=== PATIENT | female | born 1940 | race Caucasian/White ===

== ENCOUNTER 2017-12-02 09:08 | Inpatient (IN) | payer MEDICARE, OTHER ==
--- NOTE | 2017-12-02 10:01 | CT ---
CT HEAD NONCONTRAST: Clinical history: Right sided weakness, stroke, right facial droop. FINDINGS: Mild parenchymal volume loss with mild chronic ischemic disease are present. There is no intracranial hemorrhage or midline shift. IMPRESSION: 1. No acute intracranial abnormalities. 2. Mild chronic ischemic disease. Telephone call made to Emergency Department physician, Casimiro Blanc, at 0913 hours 7-18. POS: [facility]
[2017-12-02 10:35] LABS: #Basophils 0.1 thou/uL (0.0-0.2); #Eosinphils 0.2 thou/uL (0.0-0.7); #Lymphocytes 1.2 thou/uL (1.20-3.40); #Monocytes 0.4 thou/uL (0.11-0.59); #Neutrophils 4.5 thou/uL (1.40-6.50); %Basophils 1.2 % (0.0-1.0); %Eosinophils 2.6 % (0.0-10.0); %Lymphocytes 18.5 % (21.0-51.0); %Monocytes 6.6 % (0.0-10.0); Hemoglobin 14.4 g/dL (12.0-16.0); Mean Corpuscular HGB CONC 34.1 g/dL (32.0-36.0); Mean Corpuscular Volume 93.9 fL (78.0-98.0); Mean Platelet Volume 7.6 fL (7.4-10.4); Platelet Count 241 thou/uL (130-400); RBC Distribution Width 11.8 % (11.5-14.5); Red Blood Cell (RBC) Count 4.49 mill/uL (4.20-5.40); White Blood Cell (WBC) Count 6.3 thou/uL (4.8-10.8)
[2017-12-02 10:45] LABS: Prothrombin Time 13.4 SEC (12.0-14.7)
[2017-12-02 11:01] LABS: ALT (SGPT) 20 U/L (8-55); AST (SGOT) 16 U/L (5-34); Albumin 3.9 g/dL (3.4-4.8); Alkaline Phosphatase 58 U/L (40-150); Anion Gap 15 mmol/L (10-20); BUN (Urea Nitrogen) 13 mg/dL (9.8-20.1); Bilirubin, Total 1.1 mg/dL (0.2-1.2); CK (CPK) 69 U/L (29-168); CKMB 1.4 ng/mL (0-6.6); Calc. Creatinine Clearance 0 mL/min (70-130); Calcium 9.3 mg/dL (7.8-10.44); Carbon Dioxide 25 mmol/L (23-31); Chloride 103 mmol/L (98-107); Estimated GFR-MDRD 82; Globulin 2.9 g/dL (2.4-3.5); Glucose 113 mg/dL (83-110); Potassium 3.9 mmol/L (3.5-5.1); Protein, Total 6.8 g/dL (6.0-8.3); Sodium 139 mmol/L (136-145); Troponin I Less than 0.010 ng/mL (< 0.028)
[2017-12-02] MEDS ORDERED: ISOVUE-370 76%-LOCM 1 ML ONE (11:16)
[2017-12-02] MEDS ORDERED: cefTRIAXone\\ROCEPHIN 2 GM VIAL ONE (11:29)
[2017-12-02] MEDS ORDERED: Clopidogrel Bisulfate 75 MG TAB ONE (11:29)
--- NOTE | 2017-12-02 11:41 | CT ---
CONTRAST ENHANCED CTA CAROTID ARTERIES AND INTRACRANIAL CTA: HISTORY: Patient with stroke with facial drooping, right side. TECHNIQUE: A contrast enhanced CTA of the brain is performed. In addition, a contrast enhanced CTA of the carot id arteries is performed, and 2D and 3D reconstructed images were performed on an independent 3D work station. Numerous bullae are seen in the lung parenchyma. No significant evidence of mediastinal masses seen in the superior mediastinum. Some minimal thyroid heterogeneity is seen in the thyroid lobes bilaterally. No significant evidence of soft tissue neck mass lesions seen. The right and left common carotid arteries are patent. No evidence of filling defects seen in the co mmon or internal carotid arteries bilaterally. Vertebral and basilar arteries bilaterally are unremarkable. INTRACRANIAL CTA: The right and left internal carotid arteries are unremarkable. The right and left middle cerebral arteries are unremarkable. There is normal flow seen in the proximal portions of th e intracerebral artery. In the A2 portion of the anterior cerebral artery, there may be an area of a rteriovenous communication, possibly representing a small, dural-based arteriovenous malformation; h owever, this is likely of significant shunting, as the draining veins are not significantly enlarged; however, elective neurosurgical consultation may be of use. IMPRESSION: 1. No evidence of acute stroke seen. 2. No evidence of clot seen in the internal carotid artery or major intracranial vessels. 3. Possible but not definite anterior cerebral artery area of shunting and possible arteriovenous ma lformation in the A2 segment of the anterior cerebral artery. Findings discussed with Dr. Blanc at 10:32 a.m. on 12/02/2017. CODE CR POS: [facility]
[2017-12-02] MEDS ORDERED: Diabetic Tussin 200 MG/10 ML UDCUP PO PRN (13:36)
[2017-12-02] MEDS ORDERED: Senokot 8.6 MG TAB PO PRN (13:36)
[2017-12-02] MEDS ORDERED: Ondansetron HCl/PF 4 MG/2 ML Vial IVP PRN (13:36)
[2017-12-02] MEDS ORDERED: Sodium Chloride 0.65% Nasal 44 ML BOT EA NARE PRN (13:36)
[2017-12-02] MEDS ORDERED: Acetaminophen 325 MG TAB PO PRN (13:36)
[2017-12-02] MEDS ORDERED: Zolpidem Tartrate 5 MG TAB PO PRN (13:36)
[2017-12-02] MEDS ORDERED: Milk Of Magnesia 30 ML UDCUP PO PRN (13:36)
[2017-12-02] MEDS ORDERED: Loperamide HCl 2 MG CAP PO PRN (13:36)
[2017-12-02] MEDS ORDERED: Artificial Tears 18 DROP/0.9 ML EA EYE PRN (13:36)
[2017-12-02] MEDS ORDERED: Loratadine 10 MG TAB PO PRN (13:36)
[2017-12-02] MEDS ORDERED: Ondansetron ODT 4 MG TAB PO PRN (13:36)
[2017-12-02] MEDS ORDERED: Eucerin (Mineral Oil/Petrolatum,White) 30 gm Jar TOP PRN (13:36)
[2017-12-02] MEDS ORDERED: Chloraseptic Spray 180 ml Bottle PO PRN (13:36)
[2017-12-02] MEDS ORDERED: Mag-Al 1200 mg/1200 mg/30 ML UDCUP PO PRN (13:36)
[2017-12-02] MEDS ORDERED: Labetalol HCl 100 MG/20 ML VIAL SLOW IVP PRN (13:36)
[2017-12-02] MEDS ORDERED: hydrALAZINE 20 MG/ML VIAL SLOW IVP PRN (13:36)
--- NOTE | 2017-12-02 14:09 | HP ---
PRIMARY CARE PHYSICIAN: Dr. Shon Alfredo in [place]. REASON FOR ADMISSION: Stroke-like symptoms. HISTORY OF PRESENT ILLNESS: A 77-year-old female with no significant medical history who came to emergency room with acute onset of motor deficit right upper and lower extremity weakness as well as facial droop. This was started around 7:00 this morning. The patient experienced right-sided facial droop, right-sided upper and lower extremity weakness and slurred speech. The patient reports that she was not able to sleep during nighttime because she was having leg discomfort. She woke up this morning around 6:00 a.m. and she called 7:00 her daughter to come over. Patient's daughter noticed that she was weak on the right side and she was having facial asymmetry. Patient's daughter came to her home around 7:30. Subsequently, she noticed that she improved to normal. When she arrived to ER, at that time, she did not have any facial droop and she did not have any weakness. In the emergency room, patient was having recurrent similar symptoms with weakness, facial droop and right upper and lower extremity weakness. Initially, she was not able to use her right side completely, but after that she started using. So she was having recurrent on and off any weakness on the right side. In the emergency room, CT brain was done which did not show any acute process. CT [place] angiography was performed which did not show any acute stroke. There was no clot in the internal carotid artery or major intracranial vessel. There was suspicious finding of AV malformation in the A2 segment of the anterior cerebral artery. This patient's symptoms started around 7 and she came to the ER around 9:16 a.m. ER physician did stroke alert. ER physician spoke with Dr. Fay and patient was not given TPA. I saw this patient in the emergency room after consultation from the ER around 1:00. Patient did have some facial droop on the right side and she was having some weakness on the right upper and lower extremity, but the patient's family member reported that it is much better than when she came into the ER. She did not have any chest pain, palpitation, dizziness and syncope. She did not have any fall. She denies any trauma. She denies any headache. She denies any difficulty swallowing. She denies any nasal twang. She denies any similar problem in the past. Family member reports that she had several years of atrial fibrillation, but she was only taking aspirin. She was not on any statin therapy. She was not on any blood pressure medication. The patient was able to do all routine activities by herself. PAST MEDICAL HISTORY: Atrial fibrillation paroxysmal several years ago, but subsequently patient did not have any further episode, hypertension, dyslipidemia, not on any specific treatment and undiagnosed. PAST SURGICAL HISTORY: Prolapsed uterus repair. PAST PSYCHIATRIC HISTORY: Reviewed and negative. SOCIAL HISTORY: Patient lives alone by herself at home. No history of tobacco , alcohol or illicit drug abuse. FAMILY HISTORY: No strong family history of premature coronary artery disease, stroke or cancer. ALLERGIES: SULFA DRUGS. CURRENT HOME MEDICATION: Aspirin 81 mg p.o. daily. EMERGENCY ROOM COURSE: Patient is given Plavix 300 mg, aspirin 324 mg. REVIEW OF SYSTEMS: The following complete review of systems was negative, unless otherwise mentioned in the HPI or below: Constitutional: Weight loss or gain, ability to conduct usual activities. Skin: Rash, itching. Eyes: Double vision, pain. ENT/Mouth: Nose bleeding, neck stiffness, pain, tenderness. Cardiovascular: Palpitations, dyspnea on exertion, orthopnea. Respiratory: Shortness of breath, wheezing, cough, hemoptysis, fever or night sweats. Gastrointestinal: Poor appetite, abdominal pain, heartburn, nausea, vomiting, constipation, or diarrhea. Genitourinary: Urgency, frequency, dysuria, nocturia. Musculoskeletal: Pain, swelling. Neurologic/Psychiatric: Anxiety, depression. Allergy/Immunologic: Skin rash, bleeding tendency. Please see my HPI for pertinent positive and negative. All other review of system reviewed and negative except as mentioned in the HPI. PHYSICAL EXAMINATION: VITAL SIGNS: On arrival, blood pressure 178/95, pulse 91, respiratory rate 16, temperature 98.4, saturation 94% on room air, weight 85.0 kilograms. GENERAL: Patient is currently alert, awake, hypertensive, tachycardic. No obvious acute distress. HEAD: Normocephalic, atraumatic. Eyes: Pupils round, reactive to light. Extraocular muscle intact. ENT: Oropharynx within normal limits. Moist mucous membranes, no oral lesion, no pharyngeal erythema, no exudate. NECK: Supple, no JVD, no thyromegaly, no carotid bruit. LUNGS: Clear to auscultation without any rhonchi or rales. CARDIAC: S1, S2 regular, tachycardia, no murmur, no gallop, no rub. ABDOMEN: Soft, bowel sounds present, nontender, nondistended. No organomegaly , no mass, no suprapubic tenderness. BACK: Unremarkable, no CVA tenderness. EXTREMITIES: Upper extremity passive movements of all joints are normal. Lower extremity passive movements of all joints are normal. No edema. Good peripheral pulsation. SKIN: No skin rash. HEMATOLOGICAL SYSTEM: No lymphadenopathy. PSYCHIATRIC: Normal affect. NEUROLOGIC: The patient is alert, oriented x3. Cranial nerve II through XII reviewed and consistent with right-sided facial droop. No nystagmus. Pupils round and reactive to light. Motor 4/5 in the right upper and lower extremity. Sensation intact. Reflexes bilaterally symmetrical. Left-sided motor and sensation within normal limits. Reflexes bilaterally symmetrical. No cerebellar sign. Plantar bilateral flexor. IMAGING DATA AND SIGNIFICANT LABORATORY DATA: EKG showing normal sinus rhythm, low voltage QRS complex. CT brain based on my review, no acute intracranial process, mild chronic ischemic changes. CT [place] showing no evidence of clot in the internal carotid artery or intracranial vessel, suspected finding of AV malformation in the A2 segment of anterior cerebellar artery. CBC: WBC 6.3, hemoglobin 14.4, platelet 241. INR 1.0. BMP: Sodium 139, potassium 3.9, chloride 103, carbon dioxide 25, anion gap 15, BUN 13, creatinine 0.69, glucose 113, calcium 9.3. LFT: AST 16, ALT 20, alkaline phosphatase 58, albumin 3.9, CK 69, CK-MB 1.4, troponin less than 0.010. ASSESSMENT AND PLAN/IMPRESSION: 1. Stroke-like symptoms. This patient has right-sided facial droop, right upper and lower extremity weakness. Patient has recurrent symptoms. Patient has previous history of atrial fibrillation. At this point, patient is currently in sinus rhythm. She is hypertensive. Patient's cholesterol status is not known. She has several risk factor stroke. Unfortunately, patient's family member was not interested in any TPA and now patient is already out of her TPA. Dr. Fay was notified and this patient was not given any TPA in the emergency room. We will keep this patient in the hospital for secondary prevention. We will continue with aspirin 325 mg p.o. daily, Lipitor 40 mg p.o. at bedtime and Plavix 75 mg p.o. daily. We will start blood pressure medicine, lisinopril 5 mg p.o. daily. We will consult Neurology. We will consult entire stroke team including PT, OT, Speech and rehabilitation screen. We will monitor neurologically. We will obtain echocardiography. We will also check homocysteine PT/INR and syphilis. 2. Dyslipidemia. Cholesterol status is not known. We are starting Lipitor 40 mg p.o. at bedtime and check lipid profile tomorrow. 3. Hypertension, without any specific treatment. We will start lisinopril 5 mg p.o. daily. We will monitor patient's blood pressure while in hospital. 4. Deep venous thrombosis prophylaxis, Lovenox 40 mg subcu daily. 5. Gastrointestinal prophylaxis, Pepcid 20 mg p.o. b.i.d. 6. Code status: The patient is FULL CODE. Patient's daughter is surrogate decision maker. Disposition plan based on clinical course. We are expecting patient's stay in hospital more than 2 midnights. Plan of care discussed with the patient in detail. ANA MARIAD
[2017-12-02] MEDS ORDERED: Lorazepam 2 MG/ML VIAL SLOW IVP SCH (14:30)
[2017-12-02 16:02] LABS: Bilirubin Negative (Negative); Blood, Urine Trace (Negative); Clarity CLEAR (Clear); Glucose, Urine (Dipstick) Negative (Negative); Leukocyte Trace (Negative); Nitrite Negative (Negative); Protein, Urine (Dipstick) Negative (Neg-Trace); Specific Gravity, Urine 1.034 (1.002-1.036); Urobilinogen 0.2 mg/dL (0.2-1.0); pH, Urine 7.5 (5.0-9.0)
[2017-12-02 16:03] VITALS: BMI 33.2
[2017-12-02 16:04] LABS: Bacteria/HPF None Seen HPF (None Seen); Hyaline Casts/LPF 0-3 HYALINE CAST LPF (0-3 Hyaline); Squamous Epithelial 0-3 HPF (0-3); WBC/HPF None Seen HPF (0-3)
[2017-12-02] MEDS ORDERED: Sterile Water 10 ML VIAL FS SCH (16:30)
[2017-12-02] MEDS ORDERED: Ziprasidone 20 MG VIAL IM SCH (16:30)
[2017-12-02] MEDS: Famotidine 20 MG TAB PO SCH (20:52)
[2017-12-02] MEDS: Atorvastatin Calcium 40 MG TAB PO SCH (20:53)
[2017-12-02] MEDS: HYDROcodone/Acetaminophen 7.5/325 mg Tablet PO PRN (20:53)
--- NOTE | 2017-12-03 00:26 | CON ---
DATE OF CONSULTATION: 12/02/2017 CONSULTING PHYSICIAN: Family medicine service. IMPRESSION: 1. Probable lacunar stroke with right-sided weakness and dysarthria. 2. Aspirin failure. 3. History of restless leg syndrome. PLAN: 1. Add Plavix. 2. Echocardiogram. 3. MRI of the brain. 4. Determine need for rehabilitation. HISTORY OF PRESENT ILLNESS: Ms. Carpenter is a 77-year-old white female with no significant past his tory according to her daughter. She developed right-sided weakness and presented to the emergency ro om this morning. Her CT scan of the brain was negative for bleed. CTA failed to reveal any evidence of narrowing or thrombus in any of the major vessels. Her symptoms improved spontaneously while in the ER. Unfortunately, she started having recurrent right-sided weakness and was started on some Whit vix. There was some discussion of the possibility of trying tPA, but they elected not to. She has n ever had any stroke-like symptoms in the past. There is no history of any stroke risk factors such a s hypertension, diabetes, or heart disease. She was taking aspirin daily. PAST MEDICAL HISTORY: Restless legs. FAMILY HISTORY: Unremarkable. SOCIAL HISTORY: No tobacco use. ALLERGIES: SULFA. MEDICATIONS: Just aspirin. PHYSICAL EXAMINATION: GENERAL: At this time, she is overweight lady, lying in bed asleep. She had been received some Ativ an for sedation. HEENT: Pupils are equal in size. Her face appears to be symmetric. NEUROLOGIC: She is deeply lethargic and does not arouse to movement and manipulation. The tone in t he extremities seems to be grossly symmetric and reflexes were grossly symmetric. EKG shows sinus rhythm. Imaging was reviewed. LABORATORY STUDIES: Unremarkable as well. SUMMARY: A 77-year-old woman with waxing and waning right-sided weakness consistent with a probable lacunar infarction. Agree with your management, hopefully she will have a quick return to normal fun ction and follow up on the test results.
[2017-12-03] MEDS: HYDROcodone/Acetaminophen 7.5/325 mg Tablet PO PRN ×3 (02:44→22:45)
[2017-12-03 05:21] LABS: #Basophils 0.1 thou/uL (0.0-0.2); #Eosinphils 0.1 thou/uL (0.0-0.7); #Neutrophils 5.4 thou/uL (1.40-6.50); %Basophils 0.6 % (0.0-1.0); %Eosinophils 0.8 % (0.0-10.0); %Lymphocytes 23.3 % (21.0-51.0); %Monocytes 11.9 % (0.0-10.0); %Neutrophils 63.4 % (42.0-75.0); Hemoglobin 13.5 g/dL (12.0-16.0); Mean Corpuscular HGB CONC 33.2 g/dL (32.0-36.0); Mean Corpuscular Hemoglobin 30.8 pg (27.0-31.0); Mean Corpuscular Volume 92.9 fL (78.0-98.0); Mean Platelet Volume 7.3 fL (7.4-10.4); Platelet Count 273 thou/uL (130-400); RBC Distribution Width 11.9 % (11.5-14.5); Red Blood Cell (RBC) Count 4.39 mill/uL (4.20-5.40); White Blood Cell (WBC) Count 8.5 thou/uL (4.8-10.8)
[2017-12-03 05:38] LABS: ALT (SGPT) 21 U/L (8-55); AST (SGOT) 23 U/L (5-34); Albumin 3.9 g/dL (3.4-4.8); Alkaline Phosphatase 57 U/L (40-150); Anion Gap 12 mmol/L (10-20); BUN (Urea Nitrogen) 13 mg/dL (9.8-20.1); Bilirubin, Total 1.9 mg/dL (0.2-1.2); Calc. Creatinine Clearance 83 mL/min (70-130); Calcium 9.2 mg/dL (7.8-10.44); Carbon Dioxide 28 mmol/L (23-31); Cardiac Risk 3.7 (Less than 4.5); Chloride 105 mmol/L (98-107); Cholesterol 188 mg/dl (< 200 Desired); Estimated GFR-MDRD 76; Globulin 2.8 g/dL (2.4-3.5); Glucose 106 mg/dL (83-110); HDL Cholesterol 51 mg/dL (>60 Neg Risk); LDL Cholesterol, Calculated 117 mg/dL; Potassium 3.5 mmol/L (3.5-5.1); Protein, Total 6.7 g/dL (6.0-8.3); Sodium 141 mmol/L (136-145); Triglycerides 99 mg/dL (Less than 150)
[2017-12-03 05:48] LABS: Syphilis Antibody Nonreactive (Nonreactive); Syphilis Antibody Index 0.21 S/CO (<1.00 Non-Reactive)
[2017-12-03 06:54] LABS: INR-International Normal Ratio 1.1; Prothrombin Time 14.3 SEC (12.0-14.7)
[2017-12-03] MEDS: Aspirin 325 mg Enteric Coated Tablet PO SCH (09:11)
[2017-12-03] MEDS: Lisinopril 5 MG TAB PO SCH (09:11)
[2017-12-03] MEDS: Clopidogrel Bisulfate 75 MG TAB PO SCH (09:11)
[2017-12-03] MEDS: Enoxaparin Sodium 40 MG/0.4 ML SYRINGE SC SCH (09:11)
[2017-12-03] MEDS: Famotidine 20 MG TAB PO SCH ×2 (09:11→21:35)
--- NOTE | 2017-12-03 10:57 | PDOC.PN ---
- Subjective Encounter Start Date: 12/03/17 Encounter Start Time: 07:20 -: old records requested/rev Patient seen and examined. she was bothered by restless leg yesterday and night. No overnight events now pt is finally resting after norco - Objective Resuscitation Status: Resuscitation Status FULL:Full Resuscitation MAR Reviewed: Yes Vital Signs & Weight: Vital Signs (12 hours) Temp Pulse Resp BP BP Pulse Ox 12/03/17 09:11 79 142/67 H 12/03/17 08:00 97.8 F 79 18 142/67 H 95 12/03/17 04:36 98 F 80 22 H 120/56 L 90 L 12/03/17 00:20 98 F 97 20 139/76 93 L Weight Weight 187 lb 6.287 oz Result Diagrams: 12/03/17 05:07 12/03/17 05:07 EKG Reviewed by me: Yes (nsr) Phys Exam - Physical Examination Constitutional: NAD HEENT: PERRLA, moist MMs, sclera anicteric Neck: no JVD, supple Respiratory: no wheezing, no rales, no rhonchi Cardiovascular: RRR, no significant murmur, no rub Gastrointestinal: soft, non-tender, no distention, positive bowel sounds Musculoskeletal: no edema, pulses present right side weakness Psychiatric: normal affect Skin: no rash, normal turgor Dx/Plan (1) CVA (cerebral vascular accident) Code(s): I63.9 - CEREBRAL INFARCTION, UNSPECIFIED Status: Acute (2) Dyslipidemia Code(s): E78.5 - HYPERLIPIDEMIA, UNSPECIFIED Status: Chronic (3) H/O atrial fibrillation without current medication Code(s): Z86.79 - PERSONAL HISTORY OF OTHER DISEASES OF THE CIRCULATORY SYSTEM Status: Chronic (4) Hypertension Code(s): I10 - ESSENTIAL (PRIMARY) HYPERTENSION Status: Chronic (5) Obesity (BMI 30.0-34.9) Code(s): E66.9 - OBESITY, UNSPECIFIED Status: Chronic (6) Restless leg syndrome Status: Chronic - Plan cont current plan of care, plan discussed w/ family, PT/OT, social studies department chair * echo * MRI * continue aspirin and plavix, lipitor and lisinopril * medication reviewed as below * symptomatic treatment * rehab evaluation * stroke team. Review of Systems - Review of Systems Eyes: negative: Pain, Vision Change, Conjunctivae Inflammation, Eyelid Inflammation, Redness, Other ENT: negative: Ear Pain, Ear Discharge, Nose Pain, Nose Discharge, Nose Congestion, Mouth Pain, Mouth Swelling, Throat Pain, Throat Swelling, Other Respiratory: negative: Cough, Dry, Shortness of Breath, Hemoptysis, SOB with Excertion, Pleuritic Pain, Sputum, Wheezing Cardiovascular: negative: chest pain, palpitations, orthopnea, paroxysmal nocturnal dyspnea, edema, light headedness, other Gastrointestinal: negative: Nausea, Vomiting, Abdominal Pain, Diarrhea, Constipation, Melena, Hematochezia, Other Genitourinary: negative: Dysuria, Frequency, Incontinence, Hematuria, Retention , Other Musculoskeletal: negative: Neck Pain, Shoulder Pain, Arm Pain, Back Pain, Hand Pain, Leg Pain, Foot Pain, Other Neurological: Weakness. negative: Numbness, Incoordination, Change in Speech, Confusion, Seizures, Other - Medications/Allergies Allergies/Adverse Reactions: Allergies Allergy/AdvReac Type Severity Reaction Status Date / Time Sulfa (Sulfonamide Allergy Verified 12/02/17 17:05 Antibiotics) Medications: Current Medications Acetaminophen (Tylenol) 650 mg PO Q4H PRN PRN Reason: Headache/Fever or Pain Hydrocodone Bitart/Acetaminophen ([place] 7.5/325) 1 tab PO Q4H PRN PRN Reason: Moderate Pain (4-6) Last Admin: 12/03/17 02:44 Dose: 1 tab Al Hydroxide/Mg Hydroxide (Maalox) 30 ml PO Q6H PRN PRN Reason: Heartburn or Indigestion Artificial Tears (Tears Naturale) 0 drop EA EYE PRN PRN PRN Reason: Dry Eyes Aspirin (Ecotrin) 325 mg PO DAILY [facility] Last Admin: 12/03/17 09:11 Dose: 325 mg Atorvastatin Calcium (Lipitor) 40 mg PO HS [facility] Last Admin: 12/02/17 20:53 Dose: 40 mg Clopidogrel Bisulfate (Plavix) 75 mg PO DAILY [facility] Last Admin: 12/03/17 09:11 Dose: 75 mg Enoxaparin Sodium (Lovenox) 40 mg SC 0900 [facility] Last Admin: 12/03/17 09:11 Dose: 40 mg Famotidine (Pepcid) 20 mg PO BID [facility] Last Admin: 12/03/17 09:11 Dose: 20 mg Guaifenesin (Robitussin Sf) 200 mg PO Q4H PRN PRN Reason: Cough Hydralazine HCl (Apresoline) 10 mg SLOW IVP Q4H PRN PRN Reason: Systolic BP > 180 Labetalol HCl (Normodyne) 20 mg SLOW IVP Q4H PRN PRN Reason: Systolic BP > 180 Last Admin: 12/02/17 18:52 Dose: 20 mg Lisinopril (Zestril) 5 mg PO DAILY [facility] Last Admin: 12/03/17 09:11 Dose: 5 mg Loperamide HCl (Imodium) 2 mg PO PRN PRN PRN Reason: Diarrhea/Loose Stools Loratadine (Claritin) 10 mg PO DAILYPRN PRN PRN Reason: Sinus Symptoms Magnesium Hydroxide (Milk Of Magnesium) 30 ml PO DAILYPRN PRN PRN Reason: Constipation Mineral Oil/White Petrolatum (Eucerin Cream) 0 gm TOP BIDPRN PRN PRN Reason: Dry Skin Ondansetron HCl (Zofran Odt) 4 mg PO Q6H PRN PRN Reason: Nausea/Vomiting Ondansetron HCl (Zofran) 4 mg IVP Q6H PRN PRN Reason: Nausea/Vomiting Phenol (Chloraseptic [place] 180 Ml Bot) 0 ml PO PRN PRN PRN Reason: Sore Throat Senna (Senokot) 2 tab PO HSPRN PRN PRN Reason: Constipation Sodium Chloride ([place] Nasal [place] 0.65%) 0 ml EA NARE QIDPRN PRN PRN Reason: Nasal Congestion Sodium Chloride (Flush - Normal Saline) 10 ml IVF Q12HR [facility] Last Admin: 12/03/17 09:12 Dose: 10 ml Sodium Chloride (Flush - Normal Saline) 10 ml IVF PRN PRN PRN Reason: Saline Flush Zolpidem Tartrate (Ambien) 5 mg PO HSPRN PRN PRN Reason: Insomnia
[2017-12-03] MEDS: Ketorolac Tromethamine 30 MG/ML VIAL IVP SCH (12:59)
[2017-12-03] MEDS ORDERED: Methocarbamol 500 MG TAB PO SCH (13:00)
--- NOTE | 2017-12-03 14:42 | MRI ---
MRI OF THE BRAIN WITHOUT CONTRAST: Date: 12/03/17 INDICATION: History of acute stroke and unable to move the right arm, left-sided facial droop. TECHNIQUE: Multiplanar, multisequence MR images were obtained of the brain without IV contrast. COMPARISON: CT brain dated 12/02/17. FINDINGS: There is an area of restricted diffusion involving the white matter of the left external capsule exte nding into the left church radiata with associated T2 signal abnormality likely related to acute to s ubacute white matter infarct. No definite hemorrhage associated with this lesion. Septum pellucidum a nd third ventricle are midline. There is mild generalized cerebral atrophy. The [place] lenses have be en replaced. There are appropriate flow-voids within the major intracranial cerebral arteries. Skull and extracranial soft tissues appear within normal limits. There is moderate chronic small vessel whi te matter ischemic change. IMPRESSION: 1. Acute to subacute left subcortical white matter infarct involving the left external capsule exten ding into the left church radiata. There is no evidence to suggest hemorrhagic conversion. No midline shift is evident. No hydrocephalus is noted. No intracranial hemorrhage is demonstrated. 2. Moderate chronic small vessel white matter ischemic change. POS: [facility]
[2017-12-03] MEDS: Atorvastatin Calcium 40 MG TAB PO SCH (21:35)
[2017-12-03] MEDS ORDERED: Fluticasone Propionate Nasal Spray 16 gm Bottle NASAL PRN (22:43)
[2017-12-04] MEDS: Enoxaparin Sodium 40 MG/0.4 ML SYRINGE SC SCH (09:54)
[2017-12-04] MEDS: Clopidogrel Bisulfate 75 MG TAB PO SCH (09:54)
[2017-12-04] MEDS: Aspirin 325 mg Enteric Coated Tablet PO SCH (09:54)
[2017-12-04] MEDS: Lisinopril 5 MG TAB PO SCH (09:55)
[2017-12-04] MEDS: Famotidine 20 MG TAB PO SCH ×2 (09:55→22:04)
[2017-12-04] MEDS ORDERED: Lisinopril 5 MG TAB PO SCH (10:15)
--- NOTE | 2017-12-04 11:38 | PDOC.PN ---
- Subjective Encounter Start Date: 12/04/17 Encounter Start Time: 07:30 Patient seen and examined. No new complaints. No overnight events - Objective Resuscitation Status: Resuscitation Status FULL:Full Resuscitation MAR Reviewed: Yes Vital Signs & Weight: Vital Signs (12 hours) Temp Pulse Pulse Pulse Resp BP BP 12/04/17 09:55 82 12/04/17 08:41 82 79 163/73 H 152/72 H 12/04/17 07:48 98.6 F 82 18 12/04/17 03:30 98.1 F 80 20 BP Pulse Ox 12/04/17 09:55 12/04/17 08:41 12/04/17 07:48 175/77 H 95 12/04/17 03:30 139/68 94 L Weight Admit Weight 187 lb 6.287 oz Weight 187 lb 6.287 oz Result Diagrams: 12/03/17 05:07 12/03/17 05:07 Radiology Reviewed by me: Yes (mri) EKG Reviewed by me: Yes (nsr) Phys Exam - Physical Examination Constitutional: NAD HEENT: PERRLA, moist MMs, sclera anicteric Neck: no JVD, supple Respiratory: no wheezing, no rales, no rhonchi Cardiovascular: RRR, no significant murmur, no rub Gastrointestinal: soft, non-tender, no distention, positive bowel sounds Musculoskeletal: no edema, pulses present right side weakness Psychiatric: normal affect, A&O x 3 Skin: no rash, normal turgor Dx/Plan (1) CVA (cerebral vascular accident) Code(s): I63.9 - CEREBRAL INFARCTION, UNSPECIFIED Status: Acute Qualifiers: Precerebral and cerebral artery: middle cerebral artery Laterality of affected vessel: left (2) Dyslipidemia Code(s): E78.5 - HYPERLIPIDEMIA, UNSPECIFIED Status: Chronic (3) H/O atrial fibrillation without current medication Code(s): Z86.79 - PERSONAL HISTORY OF OTHER DISEASES OF THE CIRCULATORY SYSTEM Status: Chronic (4) Hypertension Code(s): I10 - ESSENTIAL (PRIMARY) HYPERTENSION Status: Chronic (5) Obesity (BMI 30.0-34.9) Code(s): E66.9 - OBESITY, UNSPECIFIED Status: Chronic (6) Restless leg syndrome Status: Chronic - Plan cont current plan of care, plan discussed w/ family, PT/OT, director social service * will need rehab near [facility] * will monitor * continue stroke team evaluation * medication reviewed as below * symptomatic treatment * discussed with family and updated result. Review of Systems - Review of Systems Constitutional: negative: fever, chills, sweats, weakness, malaise, other Eyes: negative: Pain, Vision Change, Conjunctivae Inflammation, Eyelid Inflammation, Redness, Other ENT: negative: Ear Pain, Ear Discharge, Nose Pain, Nose Discharge, Nose Congestion, Mouth Pain, Mouth Swelling, Throat Pain, Throat Swelling, Other Respiratory: negative: Cough, Dry, Shortness of Breath, Hemoptysis, SOB with Excertion, Pleuritic Pain, Sputum, Wheezing Cardiovascular: negative: chest pain, palpitations, orthopnea, paroxysmal nocturnal dyspnea, edema, light headedness, other Gastrointestinal: negative: Nausea, Vomiting, Abdominal Pain, Diarrhea, Constipation, Melena, Hematochezia, Other Genitourinary: negative: Dysuria, Frequency, Incontinence, Hematuria, Retention , Other Musculoskeletal: negative: Neck Pain, Shoulder Pain, Arm Pain, Back Pain, Hand Pain, Leg Pain, Foot Pain, Other Skin: negative: Rash, Lesions, Gavin, Bruising, Other Neurological: Weakness. negative: Numbness, Incoordination, Change in Speech, Confusion, Seizures, Other - Medications/Allergies Allergies/Adverse Reactions: Allergies Allergy/AdvReac Type Severity Reaction Status Date / Time Sulfa (Sulfonamide Allergy Verified 12/02/17 17:05 Antibiotics) Medications: Current Medications Acetaminophen (Tylenol) 650 mg PO Q4H PRN PRN Reason: Headache/Fever or Pain Hydrocodone Bitart/Acetaminophen ([place] 7.5/325) 1 tab PO Q4H PRN PRN Reason: Moderate Pain (4-6) Last Admin: 12/03/17 22:45 Dose: 1 tab Al Hydroxide/Mg Hydroxide (Maalox) 30 ml PO Q6H PRN PRN Reason: Heartburn or Indigestion Artificial Tears (Tears Naturale) 0 drop EA EYE PRN PRN PRN Reason: Dry Eyes Aspirin (Ecotrin) 325 mg PO DAILY [facility] Last Admin: 12/04/17 09:54 Dose: 325 mg Atorvastatin Calcium (Lipitor) 40 mg PO HS [facility] Last Admin: 12/03/17 21:35 Dose: 40 mg Clopidogrel Bisulfate (Plavix) 75 mg PO DAILY [facility] Last Admin: 12/04/17 09:54 Dose: 75 mg Enoxaparin Sodium (Lovenox) 40 mg SC 0900 [facility] Last Admin: 12/04/17 09:54 Dose: 40 mg Famotidine (Pepcid) 20 mg PO BID [facility] Last Admin: 12/04/17 09:55 Dose: 20 mg Fluticasone Propionate (Flonase Nasal [place]) 0 gm NASAL BIDPRN PRN PRN Reason: CONGESTION/ALLERGIES Guaifenesin (Robitussin Sf) 200 mg PO Q4H PRN PRN Reason: Cough Hydralazine HCl (Apresoline) 10 mg SLOW IVP Q4H PRN PRN Reason: Systolic BP > 180 Ketorolac Tromethamine (Toradol) 15 mg IVP NOW [facility] Stop: 12/08/17 13:01 Last Admin: 12/03/17 12:59 Dose: 15 mg Labetalol HCl (Normodyne) 20 mg SLOW IVP Q4H PRN PRN Reason: Systolic BP > 180 Last Admin: 12/02/17 18:52 Dose: 20 mg Lisinopril (Zestril) 10 mg PO DAILY [facility] Loperamide HCl (Imodium) 2 mg PO PRN PRN PRN Reason: Diarrhea/Loose Stools Loratadine (Claritin) 10 mg PO DAILYPRN PRN PRN Reason: Sinus Symptoms Magnesium Hydroxide (Milk Of Magnesium) 30 ml PO DAILYPRN PRN PRN Reason: Constipation Mineral Oil/White Petrolatum (Eucerin Cream) 0 gm TOP BIDPRN PRN PRN Reason: Dry Skin Ondansetron HCl (Zofran Odt) 4 mg PO Q6H PRN PRN Reason: Nausea/Vomiting Ondansetron HCl (Zofran) 4 mg IVP Q6H PRN PRN Reason: Nausea/Vomiting Phenol (Chloraseptic [place] 180 Ml Bot) 0 ml PO PRN PRN PRN Reason: Sore Throat Senna (Senokot) 2 tab PO HSPRN PRN PRN Reason: Constipation Sodium Chloride ([place] Nasal [place] 0.65%) 0 ml EA NARE QIDPRN PRN PRN Reason: Nasal Congestion Sodium Chloride (Flush - Normal Saline) 10 ml IVF Q12HR [facility] Last Admin: 12/04/17 09:56 Dose: 10 ml Sodium Chloride (Flush - Normal Saline) 10 ml IVF PRN PRN PRN Reason: Saline Flush Last Admin: 12/03/17 21:36 Dose: 10 ml Zolpidem Tartrate (Ambien) 5 mg PO HSPRN PRN PRN Reason: Insomnia
[2017-12-04] MEDS: HYDROcodone/Acetaminophen 7.5/325 mg Tablet PO PRN (13:19)
[2017-12-04] MEDS: Ketorolac Tromethamine 30 MG/ML VIAL IVP SCH (13:39)
[2017-12-04] MEDS: Atorvastatin Calcium 40 MG TAB PO SCH (22:03)
[2017-12-05] MEDS: HYDROcodone/Acetaminophen 7.5/325 mg Tablet PO PRN (00:08)
[2017-12-05 07:57] VITALS: TEMP 98
[2017-12-05] MEDS ORDERED: Lisinopril 10 MG TAB PO SCH (09:00)
--- NOTE | 2017-12-05 09:56 | PDOC.PN ---
- Subjective Encounter Start Date: 12/05/17 Encounter Start Time: 07:30 Patient seen and examined. No new complaints. No overnight events - Objective Resuscitation Status: Resuscitation Status FULL:Full Resuscitation MAR Reviewed: Yes Vital Signs & Weight: Vital Signs (12 hours) Temp Pulse Resp BP Pulse Ox 12/05/17 08:15 98.0 F 85 16 93 L 12/05/17 07:57 98.0 F 85 16 146/69 H 93 L 12/05/17 04:00 98.1 F 87 18 176/80 H 94 L 12/05/17 00:00 97.9 F 82 18 148/74 H 94 L Weight Admit Weight 187 lb 6.287 oz Weight 187 lb 6.287 oz I&O: 12/04/17 12/05/17 12/06/17 06:59 06:59 06:59 Intake Total 300 Balance 300 Result Diagrams: 12/03/17 05:07 12/03/17 05:07 Radiology Reviewed by me: Yes (echo) EKG Reviewed by me: Yes (nsr) Phys Exam - Physical Examination Constitutional: NAD HEENT: PERRLA, moist MMs, sclera anicteric Neck: no JVD, supple Respiratory: no wheezing, no rales, no rhonchi Cardiovascular: RRR, no significant murmur, no rub Gastrointestinal: soft, non-tender, no distention, positive bowel sounds Musculoskeletal: no edema, pulses present right hemiplegia Psychiatric: normal affect, A&O x 3 Skin: no rash, normal turgor Dx/Plan (1) CVA (cerebral vascular accident) Code(s): I63.9 - CEREBRAL INFARCTION, UNSPECIFIED Status: Acute Qualifiers: Precerebral and cerebral artery: middle cerebral artery Laterality of affected vessel: left (2) Dyslipidemia Code(s): E78.5 - HYPERLIPIDEMIA, UNSPECIFIED Status: Chronic (3) H/O atrial fibrillation without current medication Code(s): Z86.79 - PERSONAL HISTORY OF OTHER DISEASES OF THE CIRCULATORY SYSTEM Status: Chronic (4) Hypertension Code(s): I10 - ESSENTIAL (PRIMARY) HYPERTENSION Status: Chronic (5) Obesity (BMI 30.0-34.9) Code(s): E66.9 - OBESITY, UNSPECIFIED Status: Chronic (6) Restless leg syndrome Status: Chronic - Plan cont current plan of care, plan discussed w/ family, PT/OT, social media assistant * medication reviewed as below * symptomatic treatment * stable for discharge * see discharge summery * discharge medication reconciliation done. * add hangaxin . Review of Systems - Review of Systems ENT: negative: Ear Pain, Ear Discharge, Nose Pain, Nose Discharge, Nose Congestion, Mouth Pain, Mouth Swelling, Throat Pain, Throat Swelling, Other Respiratory: negative: Cough, Dry, Shortness of Breath, Hemoptysis, SOB with Excertion, Pleuritic Pain, Sputum, Wheezing Cardiovascular: negative: chest pain, palpitations, orthopnea, paroxysmal nocturnal dyspnea, edema, light headedness, other Gastrointestinal: negative: Nausea, Vomiting, Abdominal Pain, Diarrhea, Constipation, Melena, Hematochezia, Other Genitourinary: negative: Dysuria, Frequency, Incontinence, Hematuria, Retention , Other Musculoskeletal: negative: Neck Pain, Shoulder Pain, Arm Pain, Back Pain, Hand Pain, Leg Pain, Foot Pain, Other Skin: negative: Rash, Lesions, Gavin, Bruising, Other Neurological: Weakness. negative: Numbness, Incoordination, Change in Speech, Confusion, Seizures, Other - Medications/Allergies Allergies/Adverse Reactions: Allergies Allergy/AdvReac Type Severity Reaction Status Date / Time Sulfa (Sulfonamide Allergy Verified 12/02/17 17:05 Antibiotics) Medications: Current Medications Acetaminophen (Tylenol) 650 mg PO Q4H PRN PRN Reason: Headache/Fever or Pain Hydrocodone Bitart/Acetaminophen ([place] 7.5/325) 1 tab PO Q4H PRN PRN Reason: Moderate Pain (4-6) Last Admin: 12/05/17 00:08 Dose: 1 tab Al Hydroxide/Mg Hydroxide (Maalox) 30 ml PO Q6H PRN PRN Reason: Heartburn or Indigestion Artificial Tears (Tears Naturale) 0 drop EA EYE PRN PRN PRN Reason: Dry Eyes Aspirin (Ecotrin) 325 mg PO DAILY [facility] Last Admin: 12/04/17 09:54 Dose: 325 mg Atorvastatin Calcium (Lipitor) 40 mg PO HS [facility] Last Admin: 12/04/17 22:03 Dose: 40 mg Clopidogrel Bisulfate (Plavix) 75 mg PO DAILY [facility] Last Admin: 12/04/17 09:54 Dose: 75 mg Enoxaparin Sodium (Lovenox) 40 mg SC 0900 [facility] Last Admin: 12/04/17 09:54 Dose: 40 mg Famotidine (Pepcid) 20 mg PO BID [facility] Last Admin: 12/04/17 22:04 Dose: 20 mg Fluticasone Propionate (Flonase Nasal [place]) 0 gm NASAL BIDPRN PRN PRN Reason: CONGESTION/ALLERGIES Guaifenesin (Robitussin Sf) 200 mg PO Q4H PRN PRN Reason: Cough Hydralazine HCl (Apresoline) 10 mg SLOW IVP Q4H PRN PRN Reason: Systolic BP > 180 Labetalol HCl (Normodyne) 20 mg SLOW IVP Q4H PRN PRN Reason: Systolic BP > 180 Last Admin: 12/02/17 18:52 Dose: 20 mg Lisinopril (Zestril) 10 mg PO DAILY [facility] Loperamide HCl (Imodium) 2 mg PO PRN PRN PRN Reason: Diarrhea/Loose Stools Loratadine (Claritin) 10 mg PO DAILYPRN PRN PRN Reason: Sinus Symptoms Magnesium Hydroxide (Milk Of Magnesium) 30 ml PO DAILYPRN PRN PRN Reason: Constipation Mineral Oil/White Petrolatum (Eucerin Cream) 0 gm TOP BIDPRN PRN PRN Reason: Dry Skin Ondansetron HCl (Zofran Odt) 4 mg PO Q6H PRN PRN Reason: Nausea/Vomiting Ondansetron HCl (Zofran) 4 mg IVP Q6H PRN PRN Reason: Nausea/Vomiting Phenol (Chloraseptic [place] 180 Ml Bot) 0 ml PO PRN PRN PRN Reason: Sore Throat Senna (Senokot) 2 tab PO HSPRN PRN PRN Reason: Constipation Sodium Chloride ([place] Nasal [place] 0.65%) 0 ml EA NARE QIDPRN PRN PRN Reason: Nasal Congestion Sodium Chloride (Flush - Normal Saline) 10 ml IVF Q12HR [facility] Last Admin: 12/04/17 22:04 Dose: 10 ml Sodium Chloride (Flush - Normal Saline) 10 ml IVF PRN PRN PRN Reason: Saline Flush Last Admin: 12/03/17 21:36 Dose: 10 ml Zolpidem Tartrate (Ambien) 5 mg PO HSPRN PRN PRN Reason: Insomnia
[2017-12-05] MEDS: Aspirin 325 mg Enteric Coated Tablet PO SCH (10:14)
[2017-12-05] MEDS: Enoxaparin Sodium 40 MG/0.4 ML SYRINGE SC SCH (10:15)
[2017-12-05] MEDS: Famotidine 20 MG TAB PO SCH (10:15)
[2017-12-05] MEDS: Clopidogrel Bisulfate 75 MG TAB PO SCH (10:15)
--- NOTE | 2017-12-05 12:10 | DIS ---
DATE OF ADMISSION: 12/02/2017 DATE OF DISCHARGE: 12/05/2017 PRIMARY CARE PHYSICIAN: Juni Menendez M.D. DISCHARGE DISPOSITION: Rehabilitation. PRIMARY DISCHARGE DIAGNOSES: Acute ischemic stroke, likely MCA territory atherosclerosis related and right-sided paralysis. SECONDARY DISCHARGE DIAGNOSES: Restless leg syndrome, obesity with body mass index 33, hypertension, long history of atrial fibrillation in past without any current medications or recurrence. PRIMARY PROCEDURE/OPERATION: None. RADIOLOGICAL INVESTIGATION: CT brain initially showed no acute intracranial abnormality, mild chroni c ischemic disease. CT [place] angiography showed no carotid stenosis. MRI brain done, [facility] showed acute to subacute infarct in left subcortical white matter, left external capsule and left church radiata. No hemorrhage. Echocardiography showed LVH. SIGNIFICANT LABORATORIES: WBC 8.5, hemoglobin 13.5, platelet 273. INR 1.1. Sodium 141, potassium 3 .5, BUN 13, creatinine 0.74, calcium 9.2. LFT: AST 23, ALT 21, alkaline phosphatase 57, albumin 3.9 , LDL 117. Homocystine level 6.21. Cardiac enzymes negative. Urinalysis unremarkable. Syphilis ne gative. DISCHARGE MEDICATIONS: Aspirin 81 mg p.o. daily, Plavix 75 mg p.o. daily, Lipitor 40 mg p.o. at bedt patricia, lisinopril 10 mg p.o. daily, Robaxin 500 mg p.o. q.i.d., Pepcid 20 mg p.o. b.i.d. CONTRAINDICATIONS: The patient has a very, very remote history of atrial fibrillation that was about more than 10 years ago and she never had any recurrence or she was not kept on any kind of medicatio n as well. At this point, while in hospital, we also did not notice any atrial fibrillation or any k ind of arrhythmia. At this point, patient does not need any chronic anticoagulation because this str jimmie is not suspected from embolic stroke. It is most likely atherosclerosis related, undiagnosed hyp ertension and cholesterol status. Neurology also did not recommend any anticoagulation on this parti cular patient. CODE STATUS: FULL CODE. INPATIENT CONSULTANTS: Dr. Frankie Holt neurologist was following while in hospital. TEST RESULTS PENDING ON DISCHARGE: None. ALLERGIES: SULFA DRUGS. DISCHARGE PLAN: Post hospital, patient is advised to follow up with Neurology, primary care physicia n as instructed. HOSPITAL COURSE: A 77-year-old female who was admitted by me on 12/02/2017. Please see my HPI for f urther detail. This patient was having stroke-like symptoms. She was having right upper and lower e xtremity paraesthesia and weakness, which comes and goes. Patient had a stroke alert in the emergenc y room. Her CT brain was negative. CT [place] and CT angiography was negative. The patien t's family member I think refused versus patient was not a good candidate for TPA and that is why TPA was not given. Patient developed right-sided upper and lower extremity weakness. When we saw, at that time, this pa tient was not in TPA window. Anyway, patient was treated with aspirin, Plavix, statin therapy and mojgan nielsen has new diagnosis of dyslipidemia. She has new diagnosis of hypertension and that is why we starte d on lisinopril as well. This patient still has dense right upper and lower extremity weakness with a maximum power is up to 3. Patient is requiring rehabilitation and that is why with help of case jessica richards, we arranged rehabilitation. Family member wanted to go to rehab nearby [facility] [place] where her mabel bean lives. Patient will follow up with Neurology and primary care physician after rehabilitation. Demarcus mendoza recommended to continue aspirin, Plavix, and statin therapy. All new medication reconciled to day. The patient has approval to go to rehab today. The patient is seen and examined at bedside today. P gissell of care discussed with the family member at bedside. Paperwork for discharge done. Discharge me dication reconciliation done. Total time spent on discharge day 32 minutes.
[2017-12-05 13:22] VITALS: BP 163/77
== END 2017-12-05 12:59 | DRG 65 ==
LOC: ERS 09:08 → 2SE 12:29
PROVIDERS: ADMIT Internal Medicine; ATTEND Internal Medicine
DX: I63.512 Cerebral infarction due to unspecified occlusion or stenosis of left middle cerebral artery (principal); G81.91 Hemiplegia, unspecified affecting right dominant side; I67.2 Cerebral atherosclerosis; R29.810 Facial weakness; I48.0 Paroxysmal atrial fibrillation; R47.81 Slurred speech; R29.707 NIHSS score 7; R26.81 Unsteadiness on feet; E78.5 Hyperlipidemia, unspecified; R68.2 Dry mouth, unspecified; I10 Essential (primary) hypertension; F41.9 Anxiety disorder, unspecified; F32.9 Major depressive disorder, single episode, unspecified; G25.81 Restless legs syndrome; E66.9 Obesity, unspecified; Z88.2 Allergy status to sulfonamides; Z79.899 Other long term (current) drug therapy; Z79.82 Long term (current) use of aspirin; Z87.42 Personal history of other diseases of the female genital tract; Z68.33 Body mass index [BMI] 33.0-33.9, adult
CPT/HCPCS: 36415; 36416; 70450; 70496; 70498; 70551; 80053; 80061; 81001; 82550; 82553; 83090; 84484; 85025; 85610; 85730; 86780; 93005; 93306; A4216; G8978-GP-CM; G8979-GP-CK; G8987-GO-CM; G8988-GO-CJ; G9165-GN-CM; G9166-GN-CJ; J0696; J1650; J1885; J2060; J3486